=== PATIENT | male | born 1975 | race Caucasian/White ===

== ENCOUNTER 2021-03-10 14:13 | Emergency (ER) | payer OTHER ==
[~2021-03-10] VITALS: Ht 175.3 cm; Wt 62.6 kg
[2021-03-10 18:15] VITALS: BP 144/99
== END 2021-03-10 18:15 | disposition home or self-care (01) ==
LOC: ER 14:13
DX: F10.129 Alcohol abuse with intoxication, unspecified (principal); Y90.9 Presence of alcohol in blood, level not specified